=== PATIENT | male | born 1975 | race Caucasian/White ===

== ENCOUNTER 2021-10-31 10:49 | Outpatient (CLI) | payer SELFPAY ==
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
--- NOTE | ~2021-10-31 | XR_ITS ---
EXAMINATION: XR shoulder RT min 2V DATE: 10/31/2021 11:15 INDICATION: Right shoulder pain. TECHNIQUE: 5 views of right shoulder were obtained. COMPARISON: None. FINDINGS: Bone alignment is normal. No fracture. Joint spaces are well maintained. IMPRESSION: 1. Normal right shoulder. Reviewed, dictated and finalized at location A. IMPRESSION: 1. Normal right shoulder.
== END 2021-10-31 10:50 | disposition home or self-care (01) ==
LOC: CHSIMG 10:52
PROVIDERS: PCP Internal Medicine; Visit Provider Internal Medicine
DX: S49.91XA Unspecified injury of right shoulder and upper arm, initial encounter (principal); M54.2 Cervicalgia
CPT/HCPCS: 72040; 73030

== ENCOUNTER 2024-02-11 11:17 | Emergency (ER) | payer OTHER, SELFPAY ==
--- NOTE | ~2024-02-11 | XR_ITS ---
EXAMINATION: XR shoulder LT min 2V DATE: 02/11/2024 11:45 INDICATION: Left shoulder pain. TECHNIQUE: 4 views of left shoulder were obtained. COMPARISON: None. FINDINGS: Bone alignment is normal. No fracture. Joint spaces are normal. IMPRESSION: 1. Normal left shoulder. Reviewed, dictated and finalized at location A. IMPRESSION: 1. Normal left shoulder.
[2024-02-11 11:18] VITALS: BP 159/96; PULSE 98; RESP 24; TEMP 36.3
[2024-02-11] MEDS: KETOROLAC (*BKC) 60 MG/2 ML VIAL IM (11:29)
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
[2024-02-11 12:11] VITALS: BP 158/94; PULSE 91; RESP 20; TEMP 36.7; O2SAT 97
[2024-02-11 12:17] VITALS: BP 158/94; PULSE 91; RESP 20; TEMP 36.7; O2SAT 97
== END 2024-02-11 12:17 | disposition home or self-care (01) ==
PROVIDERS: Emergency Provider Emergency Medicine; PCP Internal Medicine
DX: S46.912A Strain of unspecified muscle, fascia and tendon at shoulder and upper arm level, left arm, initial encounter (principal); W05.1XXA Fall from non-moving nonmotorized scooter, initial encounter
CPT/HCPCS: 73030; 96372; 99283; A4565; J1885